=== PATIENT | male | born 1975 | race Hispanic/Latino ===

== ENCOUNTER 2018-05-09 23:24 | Emergency (ER) | payer BC ==
[2018-05-09 23:34] VITALS: BP 154/90; PULSE 65; RESP 16; TEMP 97.5; O2SAT 100
[2018-05-10] MEDS ORDERED: Lidocaine 5% Patch TD STA (00:18)
[2018-05-10] MEDS ORDERED: Lidocaine 5% Patch TD ONE (00:36)
--- NOTE | 2018-05-10 01:45 | ED PDOC ---
HPI: Back Time Seen by Provider: 05/09/18 23:42 Chief Complaint (Nursing): Back Pain Chief Complaint (Provider): Back Pain History Per: Patient History/Exam Limitations: no limitations Onset/Duration Of Symptoms: Days (x6) Current Symptoms Are (Timing): Still Present Additional Complaint(s): 42 y/o male presents to the ED for evaluation of back pain, onset 6 days ago. Patient states while he was performing a lifts exercise, he developed pain in the lower back. Patient states he was unable to continue working out due to pain. Patient reports pain improved throughout the week. However, patient states he was jogging earlier today and developed pain above the left buttock radiating down the entire left leg several hours after. Patient reports pain worsens with movement. Patient additionally reports of taking Tylenol PM and Ibuprofen three hours prior to arrival with no relief of pain. Denies blunt trauma, fever, chills, nausea, vomiting, abdominal pain, dysuria, hematuria, incontinence and weakness. PMD: None Past Medical History Reviewed: Historical Data, Nursing Documentation, Vital Signs Vital Signs: Last Vital Signs Temp 97.5 F L 05/09/18 23:31 Pulse 65 05/09/18 23:31 Resp 16 05/09/18 23:31 BP 154/90 H 05/09/18 23:31 Pulse Ox 100 05/09/18 23:31 - Medical History PMH: No Chronic Diseases - Surgical History Surgical History: No Surg Hx - Family History Family History: States: Unknown Family Hx - Home Medications Home Medications: Ambulatory Orders Medication Instructions Recorded Cyclobenzaprine [Cyclobenzaprine 10 mg PO Q8 PRN #10 tab 05/10/18 HCl] Naproxen [Naprosyn] 500 mg PO BID PRN #10 tab 05/10/18 oxyCODONE/Acetaminophen [Percocet 1 - 2 tab PO Q6 PRN #14 tab 05/10/18 5/325 mg Tab] - Allergies Allergies/Adverse Reactions: Allergies Allergy/AdvReac Type Severity Reaction Status Date / Time No Known Allergies Allergy Verified 05/09/18 23:31 Review of Systems ROS Statement: Except As Marked, All Systems Reviewed And Found Negative Constitutional: Negative for: Fever, Chills, Weakness Gastrointestinal: Negative for: Nausea, Vomiting, Abdominal Pain Genitourinary Male: Negative for: Dysuria, Incontinence, Hematuria Musculoskeletal: Positive for: Back Pain, Leg Pain (left ) Physical Exam - Reviewed Nursing Documentation Reviewed: Yes Vital Signs Reviewed: Yes - Physical Exam Appears: Positive for: In Acute Distress (Moderate, painful) Cardiovascular/Chest: Positive for: Regular Rate, Rhythm. Negative for: Murmur Respiratory: Positive for: Normal Breath Sounds. Negative for: Respiratory Distress Pulses-Dorsalis Pedis (L): 2+ Pulses-Dorsalis Pedis (R): 2+ Gastrointestinal/Abdominal: Positive for: Normal Exam, Soft. Negative for: Tenderness Back: Positive for: Normal Inspection, Muscle Spasm (Left sided paralumbar and buttock ). Negative for: L CVA Tenderness, R CVA Tenderness, Vertebral Tenderness Extremity: Positive for: Other (Straight leg raise: (-) in the right, (+) at 35 degrees in the left. B/L lower extremity strenght is 5/5. ) - ECG O2 Sat by Pulse Oximetry: 100 (RA) Pulse Ox Interpretation: Normal Medical Decision Making Medical Decision Making: Time: 17 Plan: -- Lidoderm 1 ea TD -- Toradol 30 mg IM -- Valium 10 mg PO -- LS Spine AP/LAT XR 0145 On re-evaluation, pt. reports no pain relief. Percocet 2 tabs PO ordered. 0258 On 2nd re-evaluation, pt. reports pain is beginning to improve but is still present. 0350 On final re-evaluation, pt. alert, awake. Reports pain has further improved. Advised to f/u with back specialist for possible MRI but is to return to ED immediately if symptoms worsen. Pt. searched on [place] [facility] aware and has no narcotic Rx filled in the last 2 years. Pt. informed that he will be prescribed Percocet and he is to only use it if Naproxen/Flexeril do not work for his pain. Educated on addiction potential with Percocet. Also told to refrain from alcohol and operating heavy machinery while on flexeril and/or percocet. Verbalized understanding of necessary f/u and care and instructions on med use. Gait steady, unassisted. Scribe Attestation: Documented by Carlos Hancock, acting as a scribe for Jose D Rosenberg PA-C. Provider Scribe Attestation: All medical record entries made by the Scribe were at my direction and personally dictated by me. I have reviewed the chart and agree that the record accurately reflects my personal performance of the history, physical exam, medical decision making, and the department course for this patient. I have also personally directed, reviewed, and agree with the discharge instructions and disposition. Disposition - Clinical Impression Clinical Impression: Sciatica - Patient ED Disposition Is Patient to be Admitted: No - Disposition Referrals: Giuseppe Bains MD [Medical Doctor] - Blaze Corona III, MD [Staff Provider] - Disposition: Routine/Home Disposition Time: 03:59 Condition: IMPROVED Additional Instructions: FOLLOW UP WITH BACK SPECIALIST FOR FURTHER EVALUATION RETURN TO ED IMMEDIATELY IF SYMPTOMS WORSEN GANESH DODSON, thank you for letting us take care of you today. Your provider was Clovis Bone MD and you were treated for LOWER BACK PAIN/LT LEG PAIN. The emergency medical care you received today was directed at your acute symptoms. If you were prescribed any medication, please fill it and take as directed. It may take several days for your symptoms to resolve. Return to the Emergency Department if your symptoms worsen, do not improve, or if you have any other problems. Please contact your doctor or call one of the physicians/clinics you have been referred to that are listed on the Patient Visit Information form that is included in your discharge packet. Bring any paperwork you were given at discharge with you along with any medications you are taking to your follow up visit. Our treatment cannot replace ongoing medical care by a primary care provider outside of the emergency department. Thank you for allowing the [facility] team to be part of your care today. If you had an X-Ray or CT scan: A Radiologist will review the ED reading if any change in treatment is needed we will contact you. If you had a blood, urine, or wound culture: It will take several days for the results, if any change in treatment is needed we will contact you. If you had an STI test: It will take 48 hours for the results. Please call after 1 week if you have not heard back. Prescriptions: Cyclobenzaprine [Cyclobenzaprine HCl] 10 mg PO Q8 PRN #10 tab PRN Reason: Muscle Spasm Naproxen [Naprosyn] 500 mg PO BID PRN #10 tab PRN Reason: Pain oxyCODONE/Acetaminophen [Percocet 5/325 mg Tab] 1 - 2 tab PO Q6 PRN #14 tab PRN Reason: Pain Instructions: Sciatica (DC) Forms: [employer] (Hungarian)
[2018-05-10] MEDS ORDERED: Oxycodone/Acetaminophen 5/325 mg Tab PO STA (01:48)
--- NOTE | 2018-05-10 09:12 | RAD ---
Date of service: 05/10/2018 PROCEDURE: Radiographs of the Lumbar Spine. HISTORY: pain COMPARISON: No prior. FINDINGS: BONES: Normal alignment. No listhesis. No fracture. DISC SPACES: Mild multilevel lumbar spondylosis predominate the upper lumbar spine as well as thoracolumbar junction. Disc heights appear preserved throughout. No destructive bony lesion appreciable. OTHER FINDINGS: None. IMPRESSION: Mild multilevel lumbar spondylosis without fracture or spondylolisthesis appreciable.
== END 2018-05-10 04:30 | disposition home or self-care (01) ==
LOC: H.ER 23:24
DX: M54.32 Sciatica, left side (principal)
CPT/HCPCS: 72100; 96372; 99282; J1885